=== PATIENT | female | born 1995 | race Caucasian/White ===

== ENCOUNTER 2016-09-14 16:58 | Emergency (ER) | payer MEDICAID ==
[~2016-09-14] VITALS: Ht 160 cm; Wt 52.3 kg
[~2016-09-14 16:58] MED LIST: CITA20TA5 PO; CLON0.1T PO; CLON1TAB PO; HYDR10TA4 PO; INSU100V8 SQ; LAMO25TA5 PO; LEVO75TA PO; LORA2TAB PO; LURA40TA PO; METF500T4 PO; METH10TA4 PO; PRAV10TA2 PO; QUET300T5 PO
[2016-09-14] MEDS ORDERED: HYDROmorphone 1 MG/ML, 1ML ONE (17:25)
[2016-09-14] MEDS ORDERED: ONDANSETRON 2MG/ML, 2ML ONE (17:25)
[2016-09-14] MEDS ORDERED: HYDROmorphone 1 MG/ML, 1ML IVPush PRN (17:30)
[2016-09-14] MEDS ORDERED: ONDANSETRON 2MG/ML, 2ML IVPush ONE (17:30)
[2016-09-14] MEDS ORDERED: SODIUM CHLORIDE FLUSH 10ML SYR IVF ONE (17:30)
[2016-09-14 17:50] LABS: BLOOD UREA NITROGEN 10 mg/dL (7-18)
[2016-09-14 18:51] LABS: PATH.CAST-FLAG NOT PRESENT; SPERM-FLAG NOT PRESENT; SRC-FLAG NOT PRESENT; XTAL-FLAG NOT PRESENT; YLC-FLAG NOT PRESENT
[2016-09-14 19:22] VITALS: BP 105/66
== END 2016-09-14 19:25 | disposition home or self-care (01) ==
LOC: ED 19:00
DX: N39.0 Urinary tract infection, site not specified (principal); E10.8 Type 1 diabetes mellitus with unspecified complications
CPT/HCPCS: 36415; 76830; 80048; 81001; 82040; 82962; 84703; 85025; 87086; 96374; 96375; 99285; J1170; J2405

== ENCOUNTER → 2016-12-01 | Outpatient (CLI) | payer MEDICAID | END | disposition home or self-care (01) | LOC: CFH 08:26 | PROVIDERS: ATTEND Student in an Organized Health Care Education/Training Program | DX: O26.891 Other specified pregnancy related conditions, first trimester (principal); O24.011 Pre-existing type 1 diabetes mellitus, in pregnancy, first trimester; O99.281 Endocrine, nutritional and metabolic diseases complicating pregnancy, first trimester; O99.341 Other mental disorders complicating pregnancy, first trimester; O99.331 Smoking (tobacco) complicating pregnancy, first trimester; R94.31 Abnormal electrocardiogram [ECG] [EKG]; E10.9 Type 1 diabetes mellitus without complications; E03.9 Hypothyroidism, unspecified; F31.9 Bipolar disorder, unspecified; F25.0 Schizoaffective disorder, bipolar type; F17.200 Nicotine dependence, unspecified, uncomplicated | CPT/HCPCS: 93306 ==

== ENCOUNTER 2016-12-06 19:03 | Emergency (ER) | payer MEDICAID ==
[~2016-12-06] VITALS: Ht 160 cm; Wt 58.4 kg
[2016-12-06 20:44] VITALS: BP 118/70
== END 2016-12-06 20:46 | disposition home or self-care (01) ==
LOC: ED 20:40
DX: O26.892 Other specified pregnancy related conditions, second trimester (principal); R30.0 Dysuria; O24.912 Unspecified diabetes mellitus in pregnancy, second trimester; Z3A.14 14 weeks gestation of pregnancy
CPT/HCPCS: 81003; 99283

== ENCOUNTER 2017-01-25 16:41 | Outpatient (CLI) | payer MEDICAID ==
[~2017-01-25] VITALS: Ht 160 cm; Wt 62.0 kg
== END 2017-01-25 17:33 | disposition home or self-care (01) ==
LOC: LDOP 16:41
PROVIDERS: ATTEND Student in an Organized Health Care Education/Training Program
DX: O26.852 Spotting complicating pregnancy, second trimester (principal); O46.92 Antepartum hemorrhage, unspecified, second trimester; O99.332 Smoking (tobacco) complicating pregnancy, second trimester; O99.342 Other mental disorders complicating pregnancy, second trimester; O99.282 Endocrine, nutritional and metabolic diseases complicating pregnancy, second trimester; F32.9 Major depressive disorder, single episode, unspecified; E07.9 Disorder of thyroid, unspecified; F17.200 Nicotine dependence, unspecified, uncomplicated; Z3A.21 21 weeks gestation of pregnancy
CPT/HCPCS: 59025; 99211; G0463

== ENCOUNTER 2017-12-31 14:30 | Emergency (ER) | payer MEDICAID, OTHER ==
[~2017-12-31] VITALS: Ht 160 cm; Wt 54.0 kg
[~2017-12-31 14:30] MED LIST changes: -CITA20TA5 PO; +CITA20TA6 PO; +METF500T17 PO; -METF500T4 PO
[2017-12-31 15:00] LABS: O2 FLOW RA L/min; PH, VENOUS 7.408 pH (7.320-7.420)
[2017-12-31] MEDS ORDERED: ONDANSETRON ODT 4 MG PO ONE (15:00)
[2017-12-31 15:01] LABS: BASOPHILS # (AUTO) 0.16 x10^3/uL (0-0.1); BASOPHILS % (AUTO) 1 % (0-1); EOSINOPHILS # (AUTO) 0.11 x10^3/uL (0-0.4); EOSINOPHILS % (AUTO) 1 % (1-7); LYMPHOCYTES # (AUTO) 3.43 x10^3/uL (1-3.4); LYMPHOCYTES % (AUTO) 30 % (22-44); MD NO; MEAN CORPUSCULAR HEMOGLOBIN 29.8 pg (27.0-34.8); MEAN CORPUSCULAR HGB CONC 33.2 g/dL (32.4-35.8); MEAN CORPUSCULAR VOLUME 89.8 fL (80-100); MEAN PLATELET VOLUME 8.6 fL (7.4-10.4); MONOCYTES # (AUTO) 0.23 x10^3/uL (0.2-0.8); MONOCYTES % (AUTO) 2 % (2-9); NEUTROPHILS # (AUTO) 7.47 x10^3/uL (1.8-6.8); NEUTROPHILS % (AUTO) 66 % (42-75); PLATELET COUNT 273 x10^3/uL (130-400); RED BLOOD COUNT 4.59 x10^6/uL (3.82-5.3); RED CELL DISTRIBUTION WIDTH 13.3 % (9.6-15.2)
[2017-12-31] MEDS ORDERED: ONDANSETRON ODT 4 MG ONE (15:08)
[2017-12-31 15:10] LABS: ALANINE AMINOTRANSFERASE 17 U/L (12-78); ALBUMIN 4.1 g/dL (3.4-5.0); ANION GAP 6 mmol/L (5-15); CALCIUM 8.8 mg/dL (8.5-10.1); CHLORIDE 107 mmol/L (98-107); CREATININE 0.86 mg/dL (0.55-1.02)
[2017-12-31 15:15] LABS: ALKALINE PHOSPHATASE 105 U/L (45-117); BILIRUBIN,TOTAL 0.3 mg/dL (0.2-1.0); TOTAL PROTEIN 7.8 g/dL (6.4-8.2)
[2017-12-31] MEDS ORDERED: KETOROLAC 30 MG/1 ML ONE (15:38)
[2017-12-31 15:46] LABS: ACETONE, SERUM Negative (Negative)
[2017-12-31] MEDS ORDERED: KETOROLAC 60 MG/2 ML IM ONE (16:00)
[2017-12-31] MEDS ORDERED: SERT25TA PO (16:03)
[2017-12-31 16:08] LABS: CULTURE INDICATED? NO; MICROSCOPIC NOT IND
[2017-12-31] MEDS ORDERED: MORPHINE SULFATE 4 MG/ML, 1ML IVPush ONE (17:00)
[2017-12-31] MEDS ORDERED: MORPHINE SULFATE 4 MG/ML, 1ML ONE (17:16)
[2017-12-31] MEDS ORDERED: OMNIPAQUE 350 MG/ML, 100ML BOTTLE ONE (17:22)
[2017-12-31] MEDS ORDERED: DICYCLOMINE 20 MG TABLET PO ONE (18:00)
[2017-12-31] MEDS ORDERED: DICYCLOMINE 20 MG TABLET ONE (18:05)
[2017-12-31 18:14] VITALS: BP 101/61
== END 2017-12-31 18:27 | disposition home or self-care (01) ==
LOC: ED 17:48
DX: R10.2 Pelvic and perineal pain (principal); R11.2 Nausea with vomiting, unspecified; E10.649 Type 1 diabetes mellitus with hypoglycemia without coma; F41.1 Generalized anxiety disorder; F31.9 Bipolar disorder, unspecified; F20.9 Schizophrenia, unspecified
CPT/HCPCS: 36415; 74177; 76830; 80053; 81003; 82010; 82803; 84703; 85025; 96372; 96374; 99285; J1885; Q0162; Q9967